=== PATIENT | female | born 1970 | race Caucasian/White ===

== ENCOUNTER → 2020-02-27 16:43 | Outpatient (BNVA) | payer SELFPAY | PROVIDERS: Family Provider Family Medicine; PCP Family Medicine; Visit Provider Nurse Practitioner Family | DX: R50.9 Fever, unspecified (principal); R05 Cough; R09.89 Other specified symptoms and signs involving the circulatory and respiratory systems | CPT/HCPCS: 71046; 80053; 85025; 87400; 87635 ==

== ENCOUNTER → 2021-01-01 09:58 | Outpatient (BNVA) | payer OTHER, SELFPAY | PROVIDERS: Family Provider Family Medicine; PCP Family Medicine; Visit Provider Family Medicine | DX: S86.912A Strain of unspecified muscle(s) and tendon(s) at lower leg level, left leg, initial encounter (principal); X58.XXXA Exposure to other specified factors, initial encounter | CPT/HCPCS: 73560 ==

== ENCOUNTER 2021-01-19 15:38 | Outpatient (CLI) | payer OTHER, SELFPAY ==
--- NOTE | 2021-01-19 16:45 | MR_ITS ---
WS: [id number] MRI RIGHT KNEE NONCONTRAST TECHNIQUE: Axial PD, coronal PD fat sat, coronal PD, sagittal PD, and sagittal PD fat-sat images obta ined. CLINICAL INFORMATION: S86.342A - Strainencounter COMPARISON: None. FINDINGS: Distal quadriceps and patella tendons are intact. Small suprapatellar effusion. Hypertrophic patella. ACL and PCL are intact. Small amount of prepatellar and infrapatellar edema consistent with prepatel lar bursitis. Mild distention of the prepatellar bursa. Chronic thinning of the medial and lateral meniscus. No acute appearing meniscal tears. Moderate lalo dromalacia involving the medial and lateral joint compartments. A few small focal chondral defects mo re prominent involving the posterior lateral femoral condyle measuring 4 mm. No subchondral edema. Mo derate chondromalacia patella. Medial and lateral patellar retinaculum appear intact. Normal medial a nd lateral collateral ligaments. Normal tibial plateau. MR/MR knee RT wo con* [id number] IMPRESSION: 1. Findings compatible with prepatellar bursitis with mild distention of the p repatellar bursa. 2. Anterior and posterior cruciate ligaments are intact. 3. Chronic thinning of the medial and lateral meniscus. No acute appearing men iscal tears. 4. Moderate chondromalacia involving the medial and lateral joint compartments with a few small chondral defects. No subchondral edema. 5. Hypertrophic patella with moderate chondromalacia patella. 6. Small suprapatellar effusion. 7. Medial and lateral collateral ligaments are intact.
== END 2021-01-19 15:39 | disposition home or self-care (01) ==
PROVIDERS: PCP Family Medicine; Visit Provider Family Medicine
DX: S86.911A Strain of unspecified muscle(s) and tendon(s) at lower leg level, right leg, initial encounter (principal); X58.XXXA Exposure to other specified factors, initial encounter; M22.41 Chondromalacia patellae, right knee; M25.461 Effusion, right knee
CPT/HCPCS: 73721

== ENCOUNTER → 2021-01-22 09:00 | Outpatient (BNVA) | payer OTHER, SELFPAY | PROVIDERS: PCP Family Medicine; Visit Provider Family Medicine | DX: M94.269 Chondromalacia, unspecified knee (principal); I10 Essential (primary) hypertension; Z09 Encounter for follow-up examination after completed treatment for conditions other than malignant neoplasm | CPT/HCPCS: 80053; 80061; 84439; 84443; 85025 ==

== ENCOUNTER → 2021-03-19 09:29 | Outpatient (BNVA) | payer OTHER, SELFPAY | PROVIDERS: PCP Family Medicine; Visit Provider Nurse Practitioner Family | DX: R07.81 Pleurodynia (principal); R14.0 Abdominal distension (gaseous); R14.3 Flatulence | CPT/HCPCS: 71046 ==

== ENCOUNTER 2021-03-19 12:00 | Emergency (ER) | payer OTHER, SELFPAY ==
[2021-03-19 12:08] VITALS: BP 159/91; PULSE 94; RESP 15; TEMP 36.9; O2SAT 98; BMI 40.6
--- NOTE | 2021-03-19 14:03 | XR_ITS ---
WS: [id number] Portable AP upright chest, 03/19/2021, 1415 hours Clinical Data: chest pain Comparison: PA and lateral chest, 03/19/2021, 0945 hours. Findings: No nodules, masses or effusions are seen. The heart is normal. The pulmonary vascularity is not increased. No pneumonia or pneumothorax is seen. XR/XR chest 1V portable [id number] Impression: Negative chest.
--- NOTE | 2021-03-19 14:03 | ECG_ITS ---
[facility] Test Date: 2021-03-19 Pat Name: Marjan Alvarez Department: Room: Gender: Female [employer] Department Chair: : 1970 Requested By: Osmany Andrade Order Number: [id number] Tarun MD: Jamari Foster M.D. Measurements Intervals [place] Rate: 89 P: 63 MO: 152 QRS: 50 QRSD: 94 T: 46 QT: 356 QTc: 435 Interpretive Statements SINUS RHYTHM No previous ECG available for comparison Electronically Signed On 03-19-2021 18:41:12 CDT by Jamari Foster M.D. [id number]
--- NOTE | 2021-03-19 15:13 | ED_ITS ---
HPI - Chest Pain General: Chief Complaint: Chest Pain Stated Complaint: CP/SENT BY PCP Time Seen by Provider: 03/19/21 15:05 History of Present Illness: HPI narrative: Patient seen at primary care provider earlier for cough. And sinus drainage. He has had allergies. Cough is continued. Was placed on azithromycin prednisone. Patient does have a history of asthma and has nebulizer at home but is not had albuterol vials refilled long time patient said she had some chest pain with deep breath and she is told if she did got worse that she should come to the ER which she chose to do. MD complaint: chest discomfort Onset (ago): hour(s) Timing of current episode: other (With cough) Prior episodes: No Onset: other (Cough) Severity: mild Context: other (Allergies) Associated symptoms: Reports other (Cough and sinus drainage); Deny abdominal pain, dyspnea, fever(s), nausea or vomiting Review of Systems Const: Denies: fever(s), chills or body aches Eyes: Denies: change in vision or blurry vision ENMT: Reports: nasal discharge and nasal congestion; Denies: throat pain Card: Reports: chest pain (With deep inspiration); Denies: dyspnea on exertion Resp: Reports: non-productive cough and wheezing; Denies: dyspnea or productive cough GI: Denies: abdominal pain, nausea or vomiting Musc: Denies: extremity pain Skin/Breast: Denies: rash Neuro: Denies: headache(s) Psych: Denies: anxiety or depression Tylor/Lymph: Denies: easy bruising PFS ED PFSH: Medical History (Updated 03/19/21 @ 16:41 by ISABELL Azevedo) Hypertension Social History Smoking and tobacco status: current every day smoker cigarettes Packs smoked per day: 1 Alcohol intake: current Alcohol intake frequency: holidays/special occasions only Physical Exam Const: COMMON NORMALS: no acute distress, average body habitus and patient oriented x3 HENMT: COMMON NORMALS: normocephalic HEAD & SCALP: normal to inspection and normocephalic FACE & SINUS: normal facial exam Eye: COMMON NORMALS: conjunctivae normal GENERAL EYE: appearance normal, both eyes and all related structures CONJUNCTIVA: Yes conjunctivae normal Neck/C-Spine: COMMON NORMALS: no JVD Chest: COMMONS NORMALS: normal inspection of the chest Resp: COMMON NORMALS: normal respiratory effort AUSCULTATION: wheezes expiratory wheezes, right lower, right upper and posterior Cardio: COMMON NORMALS: no JVD, regular rate and regular rhythm RATE: regular rate RHYTHM: regular rhythm GI: COMMON NORMALS: Normal to inspection, nondistended, normoactive bowel sounds present Extremity: COMMON NORMALS: normal to inspection and full ROM Neuro: COMMON NORMALS: patient oriented x3 Course Vital Signs: Vital signs: Vital Signs Temperature 98.4 F 03/19/21 12:08 Pulse Rate 88 03/19/21 15:51 Respiratory Rate 16 03/19/21 15:48 Blood Pressure 135/87 03/19/21 15:36 Pulse Oximetry 96 03/19/21 15:48 MDM - Chest Pain MDM Narrative: Medical decision making narrative: Labs are negative. Chest x- ray looks fine. Patient improved with albuterol treatment. Patient has history of asthma does not have ampules at home to put in her nebulizer machine. Was having allergy problems earlier is weak. Has not started her medication was prescribed. Lab Data: Labs: Lab Results 03/19/21 03/19/21 03/19/21 Range/Units 15:32 15:32 15:32 WBC 9.7 (4.0-10.0) 10^3/ uL RBC 5.48 H (4.1-5.3) 10^6/u L Hgb 13.8 (11.5-15.3) g/dL Hct 44.2 (37.0-47.0) % MCV 80.7 L (81-99) fL MCH 25.2 L (28.0-34.0) pg MCHC 31.2 (30.0-36.0) g/dL RDW 14.5 (12.1-15.1) % Plt Count 221 (130-400) 10^3/c mm MPV 12.8 H (7.4-10.4) fL Neut % (Auto) 86.7 % Lymph % (Auto) 10.9 % Forrest % (Auto) 1.2 % Eos % (Auto) 0.3 % Baso % (Auto) 0.5 % Neut # (Auto) 8.37 H (1.8-7.7) 10^3/u L Lymph # (Auto) 1.1 (0.8-4.8) 10^3/u L Forrest # (Auto) 0.1 L (0.2-0.9) 10^3/u L Eos # (Auto) 0.0 (0.0-0.8) 10^3/u L Baso # (Auto) 0.1 (0.0-0.1) 10^3/u L Nucleated RBC % (a uto) 0 % Nucleated RBCs # 0.0 /100WBC Sodium 137 (136-145) mmol/L Potassium 4.7 (3.5-5.1) mmol/L Chloride 100 (98-107) mmol/L Carbon Dioxide 24 (22-29) mmol/L Anion Gap 17.7 (5-19) BUN 15 (6-20) mg/dL Creatinine 0.6 (0.5-0.9) mg/dL GFR Calculation 105.8 (90-130) mL/min Glucose 172 H (65-115) mg/dL Calculated Osmolal ity 289 (285-295) mOsm/k g Calcium 9.3 (8.5-10.5) mg/dL Total Bilirubin 0.2 (0.15-1.2) mg/dL AST 19 (0-32) U/L ALT 30 (0-33) U/L Alkaline Phosphata se 100 (35-105) IU/L Troponin T Baselin e 6 (0-10) ng/L Total Protein 7.4 (6.6-8.7) g/dL Albumin 4.8 (3.5-5.2) g/dL Globulin 2.6 (1.3-4.6) g/dL EKG Data^: EKG 1: EKG interpretation date: 03/19/21 EKG interpretation time: 12:17 Computer generated interpretation: Sinus rhythm ventricular rate 89 bpm MI interval 152 ms QRS duration 94 ms QT is 356 ms Discharge Plan Discharge Patient Disposition: Home Clinical Impression: Bronchitis Condition: Stable Prescriptions: New Ventolin HFA 90 mcg/actuation HFA aerosol inhaler 2 inh inhalation Q6H PRN (Reason: shortness of breath or wheezing) Qty: 6.7 RF: 0 albuterol sulfate 0.63 mg/3 mL solution for nebulization 0.63 mg inhalation TID PRN (Reason: shortness of breath or wheezing) Qty: 75 RF: 0 No Action omega-3 fatty acids [Fish Oil Concentrate] 1,000 mg capsule 1,000 mg PO DAILY@0700 RF: 0 azithromycin 250 mg tablet See Rx Instructions PO .COMPLEX Qty: 6 RF: 0 cholecalciferol (vitamin D3) 1,000 unit capsule 1,000 unit PO DAILY@0700 RF: 0 ascorbic acid (vitamin C) 500 mg capsule 500 mg PO DAILY@0700 RF: 0 ferrous sulfate [FeroSul] 325 mg (65 mg iron) tablet 325 mg PO DAILY@0700 RF: 0 magnesium 200 mg tablet 200 mg PO DAILY@0700 RF: 0 ibuprofen 200 mg capsule 200 mg PO Q6H PRN (Reason: Pain) RF: 0 Centrum Complete 18-400 mg-mcg tablet 1 tab PO DAILY@0700 RF: 0 naproxen [Naprosyn] 500 mg tablet 500 mg PO BID 14 Days Qty: 28 RF: 0 prednisone 20 mg tablet 40 mg PO DAILY@0700 RF: 0 amlodipine 10 mg tablet 10 mg PO DAILY@0700 RF: 0 lisinopril 10 mg tablet 10 mg PO DAILY@0700 RF: 0 Discharge Orders: Discharge ED (Routine); Ordered 03/19/21 Ordered By: Tao Smith Referrals: Neo Hernandez DO [Primary Care Provider] - Discharge Diet: Usual diet Discharge Activity: Resume usual activity Patient Instructions: Acute Bronchitis (ED) Activity Restrictions/Additional Instructions: Follow-up with medical provider as directed. Take medications as prescribed. Return to the ER or your medical provider if condition worsens. Please read and understand discharge instructions. If any questions ask please. Coding Level of Care Code ED Sql Server Developer for Nick Fwd Exam Comprehensive
[2021-03-19 15:36] VITALS: BP 135/87; PULSE 87; RESP 15; O2SAT 96
[2021-03-19 15:48] VITALS: PULSE 87; RESP 16; O2SAT 96
[2021-03-19 15:51] VITALS: PULSE 88
[2021-03-19 15:54] LABS: Basophils # 0.1 10^3/uL (0.0-0.1); Basophils % 0.5 %; Eosinophils % 0.3 %; Hematocrit 44.2 % (37.0-47.0); Hemoglobin 13.8 g/dL (11.5-15.3); Lymphocytes # 1.1 10^3/uL (0.8-4.8); Lymphocytes % 10.9 %; Mean Corpuscular HGB Conc 31.2 g/dL (30.0-36.0); Mean Corpuscular Hemoglobin 25.2 pg (28.0-34.0); Mean Corpuscular Volume 80.7 fL (81-99); Mean Platelet Volume 12.8 fL (7.4-10.4); Monocytes # 0.1 10^3/uL (0.2-0.9); Monocytes % 1.2 %; Neutrophils # 8.37 10^3/uL (1.8-7.7); Neutrophils % 86.7 %; Nucleated Red Blood Cells % 0 %; Platelet Count 221 10^3/cmm (130-400); Red Blood Count 5.48 10^6/uL (4.1-5.3); Red Cell Distribution Width 14.5 % (12.1-15.1); White Blood Count 9.7 10^3/uL (4.0-10.0)
[2021-03-19 16:11] LABS: Alanine Aminotransferase 30 U/L (0-33); Albumin Level 4.8 g/dL (3.5-5.2); Alkaline Phosphatase 100 IU/L (35-105); Anion Gap 17.7 (5-19); Aspartate Amino Transferase 19 U/L (0-32); Blood Urea Nitrogen 15 mg/dL (6-20); Calcium 9.3 mg/dL (8.5-10.5); Carbon Dioxide 24 mmol/L (22-29); Chloride 100 mmol/L (98-107); Globulin 2.6 g/dL (1.3-4.6); Glomerular Filtration Rate 105.8 mL/min (90-130); Glucose 172 mg/dL (65-115); Osmolality Calculated 289 mOsm/kg (285-295); Potassium 4.7 mmol/L (3.5-5.1); Sodium 137 mmol/L (136-145); Total Bilirubin 0.2 mg/dL (0.15-1.2); Total Protein 7.4 g/dL (6.6-8.7)
[2021-03-19 16:12] LABS: Troponin(5th) Baseline 6 ng/L (0-10)
== END 2021-03-19 17:21 | disposition home or self-care (01) ==
PROVIDERS: Family Medicine; Emergency Provider Nurse Practitioner Family; PCP Family Medicine
DX: J40 Bronchitis, not specified as acute or chronic (principal); I10 Essential (primary) hypertension; F17.210 Nicotine dependence, cigarettes, uncomplicated
CPT/HCPCS: 71045; 80053; 84484; 85025; 93005; 94640; 99283; J7611

== ENCOUNTER 2021-04-09 13:21 | Outpatient (CLI) | payer OTHER, SELFPAY ==
--- NOTE | 2021-04-09 13:30 | MM_ITS ---
WS: [id number] BILATERAL SCREENING DIGITAL MAMMOGRAM WITH CAD HISTORY: Z12.31 - Encounter for screening mammogram for malignant ... COMPARISON: None available. Bilateral CC and MLO views submitted. Computer aided detection analyzed. Breast composition: There are scattered areas of fibroglandular density. No suspicious masses, microc alcifications or architectural distortion. MM/[place] [id number] IMPRESSION: BI-RADS: 1-Negative FOLLOW UP: 1 Year Follow-up
== END 2021-04-09 13:22 | disposition home or self-care (01) ==
LOC: RADSHAW 13:28
PROVIDERS: PCP Family Medicine; Visit Provider Nurse Practitioner Family
DX: Z12.31 Encounter for screening mammogram for malignant neoplasm of breast (principal)
CPT/HCPCS: 77067

== ENCOUNTER → 2021-04-27 08:53 | Outpatient (BNVA) | payer OTHER, SELFPAY | PROVIDERS: PCP Family Medicine; Visit Provider Internal Medicine | DX: Z01.812 Encounter for preprocedural laboratory examination (principal); Z12.11 Encounter for screening for malignant neoplasm of colon; Z20.822 Contact with and (suspected) exposure to COVID-19 | CPT/HCPCS: 87635 ==

== ENCOUNTER 2021-05-01 07:50 | Day surgery (SDC) | payer OTHER, SELFPAY ==
[2021-04-29 12:34] VITALS: BMI 39.3
[2021-05-01] MEDS: sodium chloride 0.9% 1,000 ML 30 ML IV (08:24)
--- NOTE | 2021-05-01 08:38 | ANES.PREANE2 ---
Pre-Anesthetic Assessment Pre-Anesthetic Assessment: Height/Weight: Height 1.6 m Weight 100.698 kg Preop Diagnosis: screen, ppap Proposed Procedure: Operation Date: 05/01/21 10:00 Proposed Procedures p EGD 16598 R14.0(Not Applicable) - Bertrand Mckinney MD s Colonoscopy G0121 Z12.11(Not Applicable) - Bertrand Mckinney MD Was Beta Kaia taken within 24 hours: N/A Was Clonidine taken within 24 hours: N/A Last intake: Intake Last Liquid Date 05/01/21 Last Liquid Time 08:00 Last Solid Date 04/30/21 Last Solid Time 08:00 Social: Social History: No alcohol and No tobacco Exam: Pre-Anes Outpt Exam: alert, oriented x 3, clear to auscultation bilaterally and regular rate & rhythm Airway: Submandibular: WNL Cervical ROM: WNL MP: 2 Dentition: False Pulmonary: Pulmonary: Asthma CV/HEM: CV/HEM: Anemia and HTN Metabolic: Metabolic: Morbid obesity Anesthetic Plan: ASA status: 3 Anesthesia: MAC Risk of > 500 ml blood loss (7ml/kg in children): No Meds/Allergies Current Medications: Current Medications Generic Name Dose Route Start Last Admin Trade Name Freq PRN Reason Stop Dose Admin Sodium Chloride 1,000 mls @ 30 ml s/hr 05/01/21 08:15 05/01/21 08:24 Sodium Chloride 0.9% IV 30 mls/hr .Q24H CONNIE Administration PFSH Anesthesia PFSH: Medical History (Updated 04/17/21 @ 15:14 by Inga Higuera NP) Hypertension Social History Alcohol intake: current Alcohol intake frequency: holidays/special occasions only Data Anesthesia Cardiac Studies: No Data to Display
--- NOTE | 2021-05-01 09:43 | P.HP_ITS ---
Same Day Surgery H&P Indication for Procedure/HPI DATE OF PROCEDURE: May 01, 2021 CHIEF COMPLAINT/INDICATIONFOR SURGICAL PROCEDURE: Screening colonoscopy and postprandial abdominal pain. PREOP DIAGNOSIS: screen, ppap PLANNED PROCEDRUE: Operation Date: 05/01/21 10:00 Proposed Procedures p EGD 49185 R14.0(Not Applicable) - Bertrand Mckinney MD s Colonoscopy G0121 Z12.11(Not Applicable) - Bertrand Mckinney MD Medications/Allergies* Home Medications Medication Instructions Recorded Confirmed Type ascorbic acid (vitamin C) 500 mg 500 mg PO DAILY@0700 cap 10/24/19 05/01/21 History capsule cholecalciferol (vitamin D3) 25 1,000 unit PO DAILY@0700 cap 10/24/19 05/01/21 History mcg (1,000 unit) capsule ferrous sulfate 325 mg (65 mg 325 mg PO DAILY@0700 tab 10/24/19 05/01/21 History iron) tablet ibuprofen 200 mg capsule 200 mg PO Q6H PRN 10/24/19 05/01/21 History magnesium 200 mg tablet 200 mg PO DAILY@0700 tab 10/24/19 05/01/21 History multivitamin-ferrous 1 tab PO DAILY@0700 10/24/19 05/01/21 History fumarate-folic acid 18 mg-400 mcg tablet omega-3 fatty acids 1,000 mg 1,000 mg PO DAILY@0700 cap 10/24/19 05/01/21 History capsule amlodipine 10 mg PO DAILY@0700 03/19/21 05/01/21 History Allergies/Adverse Reactions Allergy/AdvReac Type Severity Reaction Status Date / Time cyclobenzaprine Allergy Intermediate hives Verified 05/01/21 08:16 [From Flexeril] ofloxacin [From Floxin] Allergy Intermediate hives Verified 05/01/21 08:16 Penicillins Allergy Intermediate hives Verified 05/01/21 08:16 Current Medications: Generic Name Dose Route Start Last Admin Trade Name Freq PRN Reason Stop Dose Admin Sodium Chloride 1,000 mls @ 30 mls/hr 05/01/21 08:15 05/01/21 08:24 Sodium Chloride 0.9% IV 30 mls/hr .Q24H CONNIE Administration Pertinent History/Comorbid Conditions* Medical History (Updated 04/17/21 @ 15:14 by Inga Higuera NP) Hypertension Social History Alcohol intake: current Alcohol intake frequency: holidays/special occasions only Pertinent Exam Findings alert, oriented x 3, clear to auscultation bilaterally, regular rate & rhythm, operative site marked and procedure specific exam findings Recommendations Surgery/Procedure today Coding Level of Care Code Acute Service Operations Manager for Nick Montesinos
[2021-05-01 10:52] VITALS: BP 144/84; PULSE 91; RESP 16; TEMP 36.6; O2SAT 95
--- NOTE | 2021-05-01 11:03 | ANE.PACU2 ---
Inpatient post-anesthesia follow up: Airway intact: Yes Vital signs: Temperature 98 F Pulse Rate 91 Respiratory Rate 16 Blood Pressure 144/84 Pulse Oximetry 95 Oxygen Delivery Me thod Oxygen Flow Rate Fraction of Inspir ed Oxygen Hydration adequate: Yes Nausea and vomiting: No Mental status: Baseline
[2021-05-01 11:09] VITALS: BP 127/85; PULSE 90; RESP 18; TEMP 36.1; O2SAT 96
== END 2021-05-01 11:24 | disposition home or self-care (01) ==
PROVIDERS: PCP Family Medicine; Visit Provider Internal Medicine
PROC: 0DJ08ZZ Inspection of Upper Intestinal Tract, Via Natural or Artificial Opening Endoscopic (ICD-10-PCS; CPT 43235; principal; 2021-05-01 10:00)
PROC: 0DJD8ZZ Inspection of Lower Intestinal Tract, Via Natural or Artificial Opening Endoscopic (ICD-10-PCS; CPT 45378; 2021-05-01 10:00)
DX: Z12.11 Encounter for screening for malignant neoplasm of colon (principal); R14.0 Abdominal distension (gaseous); I10 Essential (primary) hypertension; E66.01 Morbid (severe) obesity due to excess calories; Z68.39 Body mass index [BMI] 39.0-39.9, adult
CPT/HCPCS: 43235; 45378; 96360; 96361; J2704; J3490; J7030

== ENCOUNTER 2021-05-19 08:50 | Outpatient (CLI) | payer OTHER, SELFPAY ==
--- NOTE | 2021-05-19 09:30 | US_ITS ---
WS: [id number] RIGHT UPPER QUADRANT ULTRASOUND HISTORY: Epigastric pain. COMPARISON: None available. Liver: 19.0 cm in length. Liver is enlarged. Surface of the liver is very slightly nodular. No mass o r intrahepatic dilatation. Gallbladder: Normally distended gallbladder with no stones or wall thickening. CBD: 0.5 cm Pancreas: Head and body are negative. Tail is obscured by bowel gas. Right kidney: 11.5 cm in length. Normal size and echogenicity. No hydronephrosis or mass. Aorta and IVC: Unremarkable abdominal aorta and IVC. No ascites. US/US gall bladder [id number] IMPRESSION: 1. Negative gallbladder. 2. Mild hepatomegaly with changes suspicious for early cirrhosis.
== END 2021-05-19 08:51 | disposition home or self-care (01) ==
PROVIDERS: PCP Family Medicine; Visit Provider Internal Medicine
DX: R10.11 Right upper quadrant pain (principal); R14.0 Abdominal distension (gaseous); R10.13 Epigastric pain; R16.0 Hepatomegaly, not elsewhere classified
CPT/HCPCS: 76705

== ENCOUNTER → 2021-06-09 09:42 | Outpatient (BNVA) | payer OTHER, SELFPAY | PROVIDERS: PCP Family Medicine; Visit Provider Nurse Practitioner Family | DX: Z20.822 Contact with and (suspected) exposure to COVID-19 (principal); R50.9 Fever, unspecified | CPT/HCPCS: 87635 ==

== ENCOUNTER 2021-06-12 06:57 | Outpatient (CLI) | payer OTHER, SELFPAY ==
[2021-06-12 07:35] VITALS: BP 132/85; PULSE 76; RESP 22; TEMP 36.6; O2SAT 96
[2021-06-12 07:55] VITALS: BP 124/80; PULSE 70; RESP 22; TEMP 36.7; O2SAT 96
[2021-06-12 08:50] VITALS: BP 131/83; PULSE 67; RESP 22; TEMP 36.7; O2SAT 98
== END 2021-06-12 08:54 | disposition home or self-care (01) ==
LOC: OPS 07:01
PROVIDERS: PCP Family Medicine; Visit Provider Nurse Practitioner Family
DX: U07.1 COVID-19 (principal)
CPT/HCPCS: 96365

== ENCOUNTER → 2021-10-21 10:38 | Outpatient (BNVA) | payer OTHER, SELFPAY | PROVIDERS: PCP Family Medicine; Visit Provider Nurse Practitioner Family | DX: J02.9 Acute pharyngitis, unspecified (principal) | CPT/HCPCS: 87071; 87880 ==

== ENCOUNTER 2022-06-09 10:01 | Emergency (ER) | payer OTHER, SELFPAY ==
[2022-06-09 10:06] VITALS: BP 147/74; PULSE 88; RESP 17; TEMP 36.5; O2SAT 94; BMI 39.6
--- NOTE | 2022-06-09 10:08 | XRR_ITS ---
PROCEDURE INFORMATION: Exam: XR Chest Exam date and time: 06/09/2022 10:14 AM Age: 51 years old Clinical indication: Pain; Shortness of breath; Angina pectoris; Additional info: Cp TECHNIQUE: Imaging protocol: Radiologic exam of the chest. Views: 1 view. COMPARISON: CR XR chest 1V portable [id number] 03/19/2021 2:14 PM FINDINGS: Lungs: Unremarkable. No consolidation. Pleural spaces: Unremarkable. No pleural effusion. No pneumothorax. Heart/Mediastinum: Unremarkable. No cardiomegaly. Bones/joints: Unremarkable. XR/XR chest 1V portable [id number] IMPRESSION: No acute findings.
--- NOTE | 2022-06-09 10:22 | W.ED.CHESTPA ---
Documented by User: RACHEL Hidalgo 06/10/22 08:15 HPI - Chest Pain General: Chief Complaint: Chest Pain Stated Complaint: chest pain Time Seen by Provider: 06/09/22 10:09 History of Present Illness: Patient is a 51-year-old female comes to the ED via EMS with chest pain. Past medical history of hypertension and GERD. Patient takes omeprazole daily for GERD. Chest pain has been going on now for the past 5 days and has been constant. Chest pain started at rest. She describes it as a aching pain in the middle of her chest that radiated up to her neck and her back. Pain was more severe and a 10 out of 10 yesterday. Denies any worsening or improving factors. This morning she took 324 mg aspirin. EMS gave patient 2 nitro and her chest pain improved. Upon arrival here in the ED her chest pain has improved and she currently rates her chest pain a 1 out of 10. Patient also admits to being a daily tobacco smoker. Associated symptoms: Deny abdominal pain, dyspnea, fever(s), nausea, palpitations or vomiting Review of Systems Const: Denies: fever(s), chills or fatigue Eyes: Denies: change in vision or eye discomfort ENMT: Denies: throat pain, odynophagia, nasal discharge or nasal congestion Card: Reports: chest pain; Denies: palpitations, edema, swelling of feet/ankles, dyspnea on exertion or orthopnea Resp: Denies: dyspnea, productive cough or non-productive cough GI: Denies: abdominal pain, nausea, vomiting, diarrhea, constipation or hematochezia : Denies: flank pain, dysuria or hematuria Musc: Denies: neck pain, back pain or extremity swelling Skin/Breast: Denies: rash or new lesions Neuro: Denies: headache(s), numbness in extremities or weakness in extremities PFS ED PFSH: Medical History Hypertension Surgical History History of abdominal hysterectomy History of tubal ligation Social History Alcohol intake: current Alcohol intake frequency: holidays/special occasions only Physical Exam Const: COMMON NORMALS: patient oriented x3 and alert GENERAL APPEARANCE: cooperative and comfortable HENMT: COMMON NORMALS: normocephalic HEAD & SCALP: normocephalic MOUTH: Normal oral and palatal mucosa present THROAT: posterior oropharynx normal and uvula midline Neck/C-Spine: COMMON NORMALS: supple GENERAL: Yes normal visual inspection Resp: COMMON NORMALS: normal respiratory effort, No retractions, No use of accessory muscles and clear to auscultation bilaterally AUSCULTATION: clear to auscultation bilaterally Cardio: COMMON NORMALS: regular rate, regular rhythm, S1 normal heart sound present, S2 normal heart sound present, No gallops present (Cardio), No clicks present (Cardio), No murmurs present (Cardio) and Peripheral pulses 2+ throughout RATE: regular rate RHYTHM: regular rhythm HEART SOUNDS: S1 normal heart sound present and S2 normal heart sound present PERIPHERAL PULSES: Peripheral pulses 2+ throughout GI: COMMON NORMALS: Normal to inspection, nondistended, normoactive bowel sounds present, Soft to palpation, non-tender and no masses PALPATION: Yes Soft to palpation : COMMON NORMALS: Yes no CVA tenderness BLADDER/KIDNEY EXAM: Yes no CVA tenderness Back/Pelvis: COMMON NORMALS: no CVA tenderness Extremity: COMMON NORMALS: normal to inspection Neuro: COMMON NORMALS: patient oriented x3 SENSORIUM/ORIENTATION: Yes alert GAIT: Yes Normal gait present Skin: GENERAL SKIN EXAM: dry skin Course Vital Signs: Vital signs: Vital Signs Temperature 97.7 F 06/09/22 14:10 Pulse Rate 90 06/09/22 14:10 Respiratory Rate 18 06/09/22 14:10 Blood Pressure 122/70 06/09/22 14:10 Pulse Oximetry 98 06/09/22 14:10 Oxygen Delivery Ak thod 06/09/22 12:15 [facility] - Chest Pain Medical Decision Making Patient is a 51-year-old female comes to the ED via EMS with chest pain. Past medical history of hypertension and GERD. Patient takes omeprazole daily for GERD. Chest pain has been going on now for the past 5 days and has been constant. Chest pain started at rest. She describes it as a aching pain in the middle of her chest that radiated up to her neck and her back. Vitals are stable. Patient appears nontoxic in no acute distress or pain. Exam is benign. CBC and CMP were unremarkable. Baseline troponin 9 and 2-hour troponin was 11 with a delta of +2. EKG showed no ST segment elevation or depression seen or any other acute findings. Chest x-ray showed no acute findings. Patient's heart score is 2 which puts her in the low risk category. She was given 2 doses of nitro via EMS before coming to the ED and states that it helped eliminate her chest pain before coming to the ED today. Referral to case management to have an outpatient sestamibi cardiac stress test set up. Patient was stable for discharge home and told to follow-up with her PCP within the next week for reevaluation. She was told that case reviewer will contact her in the next several days to set up the outpatient cardiac stress test. Strict return to ED precautions given. Patient is to agree with plan. Lab Data I reviewed the patient's lab results. : 06/09/22 10:46 06/09/22 10:46 Radiology Impressions Chest X-Ray 06/09/22 10:08 IMPRESSION: No acute findings. Laboratory Results WBC 10.1 10^3/uL (4.0-10.0) H 06/09/22 10:46 RBC 5.25 10^6/uL (4.1-5.3) 06/09/22 10:46 Hgb 13.2 g/dL (11.5-15.3) 06/09/22 10:46 Hct 42.1 % (37.0-47.0) 06/09/22 10:46 MCV 80.2 fl (81-99) L 06/09/22 10:46 MCH 25.1 pg (28.0-34.0) L 06/09/22 10:46 MCHC 31.4 g/dL (30.0-36.0) 06/09/22 10:46 RDW 14.4 % (12.1-15.1) 06/09/22 10:46 Plt Count 250 10^3/cmm (130-400) 06/09/22 10:46 MPV 12.5 fL (7.4-10.4) H 06/09/22 10:46 Neut % (Auto) 61.8 % 06/09/22 10:46 Lymph % (Auto) 27.4 % 06/09/22 10:46 Iron % (Auto) 7.7 % 06/09/22 10:46 Eos % (Auto) 2.1 % 06/09/22 10:46 Baso % (Auto) 0.7 % 06/09/22 10:46 Neut # (Auto) 6.22 10^3/uL (1.8-7.7) 06/09/22 10:46 Lymph # (Auto) 2.8 10^3/uL (0.8-4.8) 06/09/22 10:46 Iron # (Auto) 0.8 10^3/uL (0.2-0.9) 06/09/22 10:46 Eos # (Auto) 0.2 10^3/uL (0.0-0.8) 06/09/22 10:46 Baso # (Auto) 0.1 10^3/uL (0.0-0.1) 06/09/22 10:46 Nucleated RBC % (auto) 0 % 06/09/22 10:46 Nucleated RBCs # 0.0 /100WBC 06/09/22 10:46 Sodium 136 mmol/L (136-145) 06/09/22 10:46 Potassium 4.4 mmol/L (3.5-5.1) 06/09/22 10:46 Chloride 98 mmol/L (98-107) 06/09/22 10:46 Carbon Dioxide 28 mmol/L (22-29) 06/09/22 10:46 Anion Gap 14.4 (5-19) 06/09/22 10:46 BUN 14 mg/dL (6-20) 06/09/22 10:46 Creatinine 0.6 mg/dL (0.5-0.9) 06/09/22 10:46 GFR Calculation 105.4 mL/min (90-130) 06/09/22 10:46 Glucose 98 mg/dL (65-115) 06/09/22 10:46 Calculated Osmolality 282 mOsm/kg (285-295) L 06/09/22 10:46 Calcium 10.0 mg/dL (8.5-10.5) 06/09/22 10:46 Total Bilirubin 0.3 mg/dL (0.15-1.2) 06/09/22 10:46 AST 20 U/L (0-32) 06/09/22 10:46 ALT 29 U/L (0-33) 06/09/22 10:46 Alkaline Phosphatase 95 U/L (35-105) 06/09/22 10:46 Troponin T Baseline 9 ng/L (0-10) 06/09/22 10:46 Troponin T 120 Minute 11.03 ng/L (0-10) H 06/09/22 12:30 Delta Troponin T 2.03 ABS# (0-10) 06/09/22 12:30 NT-Pro-B Natriuret Pep 277 pg/mL (0-125) H 06/09/22 10:46 Total Protein 7.4 g/dL (6.6-8.7) 06/09/22 10:46 Albumin 4.2 g/dL (3.5-5.2) 06/09/22 10:46 Globulin 3.2 g/dL (1.3-4.6) 06/09/22 10:46 EKG Data EKG 1: EKG interpretation date: 06/09/22 Interpretation: Sinus rhythm, no ST segment elevation or depression seen. 87 bpm. EKG 2: EKG interpretation date: 06/09/22 Interpretation: Normal sinus rhythm, 82 bpm, no ST segment ovation or depression seen. No acute change compared initial EKG done today. Discharge Plan Discharge Patient Disposition: Home Clinical Impression: Chest pain Qualifiers: Chest pain type: unspecified Qualified Code(s): R07.9 - Chest pain, unspecified Condition: Stable Prescriptions: No Action cholecalciferol (vitamin D3) 1,000 unit capsule 1,000 unit PO DAILY@0700 ascorbic acid (vitamin C) 500 mg capsule 500 mg PO DAILY@0700 ferrous sulfate [FeroSul] 325 mg (65 mg iron) tablet 325 mg PO DAILY@0700 naproxen [Naprosyn] 500 mg tablet 500 mg PO BID 14 Days Qty: 28 0RF Stiolto Respimat 2.5-2.5 mcg/actuation mist 2 puff inhalation DAILY Qty: 4 6RF amlodipine 10 mg tablet 10 mg PO DAILY@0700 Qty: 90 1RF albuterol sulfate [Ventolin HFA] 90 mcg/actuation HFA aerosol inhaler 2 inh inhalation Q6H PRN (Reason: shortness of breath or wheezing) Qty: 6.7 0RF albuterol sulfate 0.63 mg/3 mL solution for nebulization 0.63 mg inhalation TID PRN (Reason: shortness of breath or wheezing) Qty: 75 0RF omeprazole 20 mg Capsule,Delayed Release(Dr/Ec) 20 mg PO DAILY [place] 3 Fish Oil 684-1,200 mg Capsule,Delayed Release(Dr/Ec) 1 cap PO DAILY Women's 50 Plus Daily Formula 400 mcg-500 mg calcium-20 mcg Tablet 1 tab PO DAILY aspirin 325 mg Capsule 325 mg PO DAILY lisinopril 20 mg tablet 20 mg PO DAILY Discharge Orders: Discharge ED (Routine); Ordered 06/09/22 Ordered By: Ish Brown Referrals: Neo Hernandez DO [Primary Care Provider] - Discharge Diet: Regular Discharge Activity: Increase activity as tolerated Patient Instructions: Chest Pain (ED) Activity Restrictions/Additional Instructions: Follow-up with medical provider as directed. Case management should be contacting you in the next several days set up an appointment for an outpatient cardiac stress test. Continue taking all home medications as previously prescribed. Return to the ER or your medical provider if condition worsens. Please read and understand discharge instructions. Thank you for choosing [facility] for your healthcare needs today. Please realize this is an emergency room and that we are providing you with a medical screening exam and this may not be complete and all inclusive of all the testing and or work up that you may need to determine your ailment or severity of your illness. It is very important that you follow up as instructed or that you return to the Emergency Department should you have concerns or if your condition changes or worsens in any way. Coding Level of Care Code ED Hvac Journeyman for Chg Fwd Exam Comprehensive Documented by User: Osmany Olivera DO 06/10/22 10:22 HPI - Chest Pain General: Chief Complaint: Chest Pain Stated Complaint: chest pain Time Seen by Provider: 06/09/22 10:09 [facility] ED PFSH: Medical History Hypertension Surgical History History of abdominal hysterectomy History of tubal ligation Social History Alcohol intake: current Alcohol intake frequency: holidays/special occasions only Course Vital Signs: Vital signs: Vital Signs Temperature 97.7 F 06/09/22 14:10 Pulse Rate 90 06/09/22 14:10 Respiratory Rate 18 06/09/22 14:10 Blood Pressure 122/70 06/09/22 14:10 Pulse Oximetry 98 06/09/22 14:10 Oxygen Delivery Me thod 06/09/22 12:15 MDM - Chest Pain Medical Decision Making Patient is a 51-year-old female comes to the ED via EMS with chest pain. Past medical history of hypertension and GERD. Patient takes omeprazole daily for GERD. Chest pain has been going on now for the past 5 days and has been constant. Chest pain started at rest. She describes it as a aching pain in the middle of her chest that radiated up to her neck and her back. Vitals are stable. Patient appears nontoxic in no acute distress or pain. Exam is benign. CBC and CMP were unremarkable. Baseline troponin 9 and 2-hour troponin was 11 with a delta of +2. EKG showed no ST segment elevation or depression seen or any other acute findings. Chest x-ray showed no acute findings. Patient's heart score is 2 which puts her in the low risk category. She was given 2 doses of nitro via EMS before coming to the ED and states that it helped eliminate her chest pain before coming to the ED today. Referral to case management to have an outpatient sestamibi cardiac stress test set up. Patient was stable for discharge home and told to follow-up with her PCP within the next week for reevaluation. She was told that case reviewer will contact her in the next several days to set up the outpatient cardiac stress test. Strict return to ED precautions given. Patient is to agree with plan. Chart reviewed and patient discussed with midlevel. Agree with assessment and plan. Lab Data : 06/09/22 10:46 06/09/22 10:46 Radiology Impressions Chest X-Ray 06/09/22 10:08 IMPRESSION: No acute findings. Laboratory Results WBC 10.1 10^3/uL (4.0-10.0) H 06/09/22 10:46 RBC 5.25 10^6/uL (4.1-5.3) 06/09/22 10:46 Hgb 13.2 g/dL (11.5-15.3) 06/09/22 10:46 Hct 42.1 % (37.0-47.0) 06/09/22 10:46 MCV 80.2 fl (81-99) L 06/09/22 10:46 MCH 25.1 pg (28.0-34.0) L 06/09/22 10:46 MCHC 31.4 g/dL (30.0-36.0) 06/09/22 10:46 RDW 14.4 % (12.1-15.1) 06/09/22 10:46 Plt Count 250 10^3/cmm (130-400) 06/09/22 10:46 MPV 12.5 fL (7.4-10.4) H 06/09/22 10:46 Neut % (Auto) 61.8 % 06/09/22 10:46 Lymph % (Auto) 27.4 % 06/09/22 10:46 Iron % (Auto) 7.7 % 06/09/22 10:46 Eos % (Auto) 2.1 % 06/09/22 10:46 Baso % (Auto) 0.7 % 06/09/22 10:46 Neut # (Auto) 6.22 10^3/uL (1.8-7.7) 06/09/22 10:46 Lymph # (Auto) 2.8 10^3/uL (0.8-4.8) 06/09/22 10:46 Iron # (Auto) 0.8 10^3/uL (0.2-0.9) 06/09/22 10:46 Eos # (Auto) 0.2 10^3/uL (0.0-0.8) 06/09/22 10:46 Baso # (Auto) 0.1 10^3/uL (0.0-0.1) 06/09/22 10:46 Nucleated RBC % (auto) 0 % 06/09/22 10:46 Nucleated RBCs # 0.0 /100WBC 06/09/22 10:46 Sodium 136 mmol/L (136-145) 06/09/22 10:46 Potassium 4.4 mmol/L (3.5-5.1) 06/09/22 10:46 Chloride 98 mmol/L (98-107) 06/09/22 10:46 Carbon Dioxide 28 mmol/L (22-29) 06/09/22 10:46 Anion Gap 14.4 (5-19) 06/09/22 10:46 BUN 14 mg/dL (6-20) 06/09/22 10:46 Creatinine 0.6 mg/dL (0.5-0.9) 06/09/22 10:46 GFR Calculation 105.4 mL/min (90-130) 06/09/22 10:46 Glucose 98 mg/dL (65-115) 06/09/22 10:46 Calculated Osmolality 282 mOsm/kg (285-295) L 06/09/22 10:46 Calcium 10.0 mg/dL (8.5-10.5) 06/09/22 10:46 Total Bilirubin 0.3 mg/dL (0.15-1.2) 06/09/22 10:46 AST 20 U/L (0-32) 06/09/22 10:46 ALT 29 U/L (0-33) 06/09/22 10:46 Alkaline Phosphatase 95 U/L (35-105) 06/09/22 10:46 Troponin T Baseline 9 ng/L (0-10) 06/09/22 10:46 Troponin T 120 Minute 11.03 ng/L (0-10) H 06/09/22 12:30 Delta Troponin T 2.03 ABS# (0-10) 06/09/22 12:30 NT-Pro-B Natriuret Pep 277 pg/mL (0-125) H 06/09/22 10:46 Total Protein 7.4 g/dL (6.6-8.7) 06/09/22 10:46 Albumin 4.2 g/dL (3.5-5.2) 06/09/22 10:46 Globulin 3.2 g/dL (1.3-4.6) 06/09/22 10:46 Discharge Plan Discharge Patient Disposition: Home Clinical Impression: Chest pain Qualifiers: Chest pain type: unspecified Qualified Code(s): R07.9 - Chest pain, unspecified Condition: Stable Prescriptions: No Action cholecalciferol (vitamin D3) 1,000 unit capsule 1,000 unit PO DAILY@0700 ascorbic acid (vitamin C) 500 mg capsule 500 mg PO DAILY@0700 ferrous sulfate [FeroSul] 325 mg (65 mg iron) tablet 325 mg PO DAILY@0700 naproxen [Naprosyn] 500 mg tablet 500 mg PO BID 14 Days Qty: 28 0RF Stiolto Respimat 2.5-2.5 mcg/actuation mist 2 puff inhalation DAILY Qty: 4 6RF amlodipine 10 mg tablet 10 mg PO DAILY@0700 Qty: 90 1RF albuterol sulfate [Ventolin HFA] 90 mcg/actuation HFA aerosol inhaler 2 inh inhalation Q6H PRN (Reason: shortness of breath or wheezing) Qty: 6.7 0RF albuterol sulfate 0.63 mg/3 mL solution for nebulization 0.63 mg inhalation TID PRN (Reason: shortness of breath or wheezing) Qty: 75 0RF omeprazole 20 mg Capsule,Delayed Release(Dr/Ec) 20 mg PO DAILY [place] 3 Fish Oil 684-1,200 mg Capsule,Delayed Release(Dr/Ec) 1 cap PO DAILY Women's 50 Plus Daily Formula 400 mcg-500 mg calcium-20 mcg Tablet 1 tab PO DAILY aspirin 325 mg Capsule 325 mg PO DAILY lisinopril 20 mg tablet 20 mg PO DAILY Discharge Orders: Discharge ED (Routine); Ordered 06/09/22 Ordered By: Ish Brown Referrals: Neo Hernandez DO [Primary Care Provider] - Discharge Diet: Regular Discharge Activity: Increase activity as tolerated Patient Instructions: Chest Pain (ED) Activity Restrictions/Additional Instructions: Follow-up with medical provider as directed. Case management should be contacting you in the next several days set up an appointment for an outpatient cardiac stress test. Continue taking all home medications as previously prescribed. Return to the ER or your medical provider if condition worsens. Please read and understand discharge instructions. Thank you for choosing [facility] for your healthcare needs today. Please realize this is an emergency room and that we are providing you with a medical screening exam and this may not be complete and all inclusive of all the testing and or work up that you may need to determine your ailment or severity of your illness. It is very important that you follow up as instructed or that you return to the Emergency Department should you have concerns or if your condition changes or worsens in any way. Coding Level of Care Code ED Hvac Journeyman for Chg Fwd Exam Comprehensive
--- NOTE | 2022-06-09 10:23 | ECG_ITS ---
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 Measurements Intervals [place] Rate: 87 P: 65 IA: 158 QRS: 60 QRSD: 94 T: 55 QT: 371 QTc: 447 Interpretive Statements SINUS RHYTHM Compared to ECG 03/19/2021 12:16:30 No significant changes Electronically Signed On 06-09-2022 16:29:12 CDT by Santiago Howard M.D. [email or web address]/[email or web address]/[id number]
--- NOTE | 2022-06-09 10:42 | PC.NURSE ---
pt reports she went to her dr due to chest pain radiating to back of her neck. pt reports her physician sent her here. reports pain is midsternal and described as someone kneeding me like I was a dough and lots of pressure, woke up with pain. pain has been intermittent for 5 days Reports dyspnea. denies nausea, reports lightheaded yesterday. reports she has taken ASA 325mg daily for past 3 days. reports EMS gave her 2 nitros that relieved her pain. reports pain is currently 10/26. hx HTN. lungs clear bilat. skin pink/warm/dry. speech clear. speaking in complete sentences without difficulty.
[2022-06-09 11:13] LABS: Basophils # 0.1 10^3/uL (0.0-0.1); Basophils % 0.7 %; Eosinophils # 0.2 10^3/uL (0.0-0.8); Eosinophils % 2.1 %; Hematocrit 42.1 % (37.0-47.0); Hemoglobin 13.2 g/dL (11.5-15.3); Lymphocytes # 2.8 10^3/uL (0.8-4.8); Lymphocytes % 27.4 %; Mean Corpuscular HGB Conc 31.4 g/dL (30.0-36.0); Mean Corpuscular Hemoglobin 25.1 pg (28.0-34.0); Mean Corpuscular Volume 80.2 fl (81-99); Mean Platelet Volume 12.5 fL (7.4-10.4); Monocytes # 0.8 10^3/uL (0.2-0.9); Monocytes % 7.7 %; Neutrophils # 6.22 10^3/uL (1.8-7.7); Neutrophils % 61.8 %; Nucleated Red Blood Cells % 0 %; Platelet Count 250 10^3/cmm (130-400); Red Blood Count 5.25 10^6/uL (4.1-5.3); Red Cell Distribution Width 14.4 % (12.1-15.1); White Blood Count 10.1 10^3/uL (4.0-10.0)
[2022-06-09 11:32] LABS: Troponin(5th) Baseline 9 ng/L (0-10)
[2022-06-09 11:38] LABS: Alanine Aminotransferase 29 U/L (0-33); Albumin Level 4.2 g/dL (3.5-5.2); Alkaline Phosphatase 95 U/L (35-105); Anion Gap 14.4 (5-19); Aspartate Amino Transferase 20 U/L (0-32); Blood Urea Nitrogen 14 mg/dL (6-20); Carbon Dioxide 28 mmol/L (22-29); Chloride 98 mmol/L (98-107); Globulin 3.2 g/dL (1.3-4.6); Glomerular Filtration Rate 105.4 mL/min (90-130); Glucose 98 mg/dL (65-115); NT Pro B Type Natriuretic Pept 277 pg/mL (0-125); Osmolality Calculated 282 mOsm/kg (285-295); Potassium 4.4 mmol/L (3.5-5.1); Sodium 136 mmol/L (136-145); Total Bilirubin 0.3 mg/dL (0.15-1.2); Total Protein 7.4 g/dL (6.6-8.7)
[2022-06-09 12:15] VITALS: BP 128/75; PULSE 89; RESP 17; TEMP 36.5; O2SAT 96
[2022-06-09] MEDS: lidocaine 2% viscous 15 ML, aluminum-mag hydrox-simethicon 30 ML, sucralfate oral liq 1 GM PO (12:45)
--- NOTE | 2022-06-09 12:55 | ECG_ITS ---
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 Measurements Intervals [place] Rate: 82 P: 80 TN: 159 QRS: 79 QRSD: 100 T: 78 QT: 394 QTc: 461 Interpretive Statements SINUS RHYTHM Compared to ECG 06/09/2022 10:23:56 No significant changes Electronically Signed On 06-09-2022 16:35:57 CDT by Santiago Howard M.D. [email or web address] [email or web address]/store/[id number]
[2022-06-09 13:06] LABS: Troponin 5 2HR 11.03 ng/L (0-10)
[2022-06-09 13:07] LABS: Troponin 5 2HR Delta 2.03 ABS# (0-10)
[2022-06-09] MEDS: HYDROcodone-acetaminophen 7.5-325 mg Tablet 1 TAB PO (13:44)
[2022-06-09 14:10] VITALS: BP 122/70; PULSE 90; RESP 18; TEMP 36.5; O2SAT 98
--- NOTE | 2022-06-15 14:17 | DCPLANNER ---
Addendum entered by Eileen Danielson 10/26/22 13:12: Patient had a follow up appointment scheduled for a stress test - patient did attend appointment Original Note: plan manager had message to schedule an outpatient stress test for patient. plan manager faxed signed order to centralized scheduling, who will call patient with appointment information.
== END 2022-06-09 14:12 | disposition home or self-care (01) ==
PROVIDERS: Emergency Provider Physician Assistant; PCP Family Medicine
DX: R07.9 Chest pain, unspecified (principal); I10 Essential (primary) hypertension; K21.9 Gastro-esophageal reflux disease without esophagitis; Z79.82 Long term (current) use of aspirin
CPT/HCPCS: 71045; 80053; 83880; 84484; 85025; 93005; 99285

== ENCOUNTER 2022-09-16 09:10 | Outpatient (CLI) | payer OTHER, SELFPAY ==
--- NOTE | 2022-09-16 | ECG_ITS ---
[facility] Test Date: 2022-09-16 Pat Name: Marjan Alvarez Department: Room: Gender: Female Radiology Rn: : 1970 Requested By: Ish Brown Order Number: [id number] Mcneil MD: Leigh Lind M.D. Interpretive Statements NAME OF STUDY: EXERCISE SESTAMIBI STRESS TEST INDICATION: Chest Pain PROCEDURE: At the baseline, the patient's blood pressure was 136/82 mm Hg with a heart rate of 85 bpm and oxygen saturation of 94%. The baseline electrocardiogram showed normal sinus rhythm with normal ST-Ts. ??? The patient exercised for 6 minutes and 22 seconds on a [standard [place] protocol]. Patient attained a maximum heart rate of 146 beats per minute( 86 % of the maximum predicted heart rate) with a blood pressure at the peak exercise of 179/83 mm Hg and oxygen saturation of 92%. The EKG at the peak exercise revealed sinus tachycardia with no significant ST-T wave changes. Patient did [not have any chest pain or any significant cardiac arrhythmias with the exercise. The study was terminated due to exertional shortness of breath and maximal effort. ??? During the recovery phase, there were no new changes. ??? Blood pressure at the end of the recovery phase was 141/87 mm Hg with a heart rate of 102 beats per minute and oxtgen saturation of 94%. ??? CONCLUSION: 1. Normal EKG response to treadmill exercise. 2. No exercise-induced chest pain or cardiac arrhythmia. 3. Good exercise tolerance, attained a maximum of 7 METs. Maximum VO2 of 24.5 ml/kg/min. 4. Perfusion prtion of the study will be reported separately. Electronically Signed On 09-18-2022 12:42:22 INDUSTRIAL PAINTER by Leigh Lind M.D. [email or web address]/store/[id number]
[2022-09-16 10:11] VITALS: BMI 40.7
--- NOTE | 2022-09-16 10:16 | NMCV_ITS ---
NM nico perf SPECT r/s* [id number] Marjan Alvarez Age: 51 Gender: F : 1970 Exam Date: 09/16/2022 10:16 Ordering Phys: Ish Brown Technologist: DUGLAS Whitfield Exam Location: [facility] Indications: CHEST PAIN STRESS TEST [facility] IMAGE PROTOCOL Rest/Stress 1 Exercise Day Radiopharmaceutical Dose (mCi) Administration Site Administered by Rest: Tc-99m 10.8 IV DUGLAS Whitfield Sestamibi Stress:Tc-99m 32.7 IV DUGLAS Garcia Sestamibi Rest: 16-Sep-2022 60 Discovery 630 Stress: 16-Sep-2022 15 Discovery 630 Radiopharmaceutical was injected at 85 % maximum heart rate. Supine position only as patient was unable to lay prone. Laying prone caused her to cough and was unable to get images without motion. SPECT RESULTS Technical Quality: Good Raw Data Analysis: Normal Image Corrections: No attenuation or motion correction applied Summed Stress Score: 4 Summed Rest Score: 6 Summed Difference Score: 1 PERFUSION FINDINGS Small sized perfusion abnormality of mild severity of mid to apical inferior, apical septal and apical jones on rest images with improved tracer uptake in septal and apical jones on stress images. This suggestive of attenuation artifact. FUNCTIONAL RESULTS (calculated via Gated SPECT) Stress Image LV EF (%): 48 Stress EDV (mL):126 TID: 1.02 Stress ESV (mL):66 FUNCTIONAL FINDINGS: The left ventricle is normal in size. Transient Ischemia Dilatation of 1. The left ventricular ejection fraction is mildly reduced reduced with a value of 48%. There is mild global hypokinesis. IMPRESSIONS 1. Small sized predominantly fixed perfusion abnormality of mid to apical inferior jones may represent attenuation artifact or old myocardial infarction. 2. Small sized paradoxical perfusion abnormality of apical septal and apical jones represents attenuation artifact. 3. The left ventricular ejection fraction is mildly reduced reduced with a value of 48%. 4. There is mild global hypokinesis. 5. EKG portion of the study will be reported separately. 6. No coronary ischemia based on the study. Leigh Lind MD (Electronically Signed) Final Date: 21 September 2022 13:16 S
[2022-09-16 12:21] VITALS: BP 141/87; PULSE 90
== END 2022-09-16 09:11 | disposition home or self-care (01) ==
LOC: CDL 09:11
PROVIDERS: PCP Family Medicine; Visit Provider Physician Assistant
DX: R07.9 Chest pain, unspecified (principal)
CPT/HCPCS: 36415; 78452; 93017; A9500

== ENCOUNTER → 2023-02-17 15:09 | Outpatient (BNVA) | payer OTHER, SELFPAY | PROVIDERS: PCP Family Medicine; Visit Provider Nurse Practitioner Family | DX: I10 Essential (primary) hypertension (principal); M79.641 Pain in right hand; M79.642 Pain in left hand; Z68.41 Body mass index [BMI] 40.0-44.9, adult | CPT/HCPCS: 80053; 80061; 84443 ==

== ENCOUNTER → 2023-03-03 08:46 | Outpatient (BNVA) | payer OTHER, SELFPAY | PROVIDERS: PCP Family Medicine; Visit Provider Nurse Practitioner Family | DX: I10 Essential (primary) hypertension (principal) | CPT/HCPCS: 80053; 80061; 84443 ==

== ENCOUNTER → 2023-08-23 14:24 | Outpatient (BNVA) | payer OTHER, SELFPAY | PROVIDERS: PCP Family Medicine; Visit Provider Nurse Practitioner Family | DX: R05.9 Cough, unspecified (principal) | CPT/HCPCS: 87400; 87426 ==

== ENCOUNTER → 2024-02-02 14:43 | Outpatient (BNVA) | payer OTHER, SELFPAY | PROVIDERS: PCP Family Medicine; Visit Provider Nurse Practitioner Family | DX: I10 Essential (primary) hypertension (principal); R63.5 Abnormal weight gain; R53.83 Other fatigue; Z12.31 Encounter for screening mammogram for malignant neoplasm of breast; R30.9 Painful micturition, unspecified; Z79.899 Other long term (current) drug therapy | CPT/HCPCS: 80053; 80061; 81000; 84443; 85025 ==

== ENCOUNTER 2024-02-29 09:35 | Outpatient (CLI) | payer OTHER, SELFPAY ==
--- NOTE | 2024-02-29 16:00 | MM_ITS ---
WS: [id number] Bilateral screening 3D tomosynthesis digital mammogram, 02/29/2024 Clinical Data: Z12.31 - Encounter for screening mammogram for malignant ... Comparison: 04/09/2021 Findings: The breast parenchymal pattern shows fibroglandular tissue. No spiculated masses or clustered calcifi cations are seen. There are no secondary signs of carcinoma. There are mole markers on both breasts. MM/[place] [id number] Impression: 1. Negative bilateral mammogram unchanged. 2. Recommend annual screening mammograms. BIRADS: 1-Negative FOLLOW UP: 1 Year Follow-up The CAD quotation checker was used.
== END 2024-02-29 09:36 | disposition home or self-care (01) ==
LOC: MOBLMAM 09:40
PROVIDERS: PCP Nurse Practitioner Family; Visit Provider Nurse Practitioner Family
DX: Z12.31 Encounter for screening mammogram for malignant neoplasm of breast (principal)
CPT/HCPCS: 77063; 77067

== ENCOUNTER → 2024-07-02 10:22 | Outpatient (BNVA) | payer OTHER, SELFPAY | PROVIDERS: PCP Nurse Practitioner Family; Visit Provider Internal Medicine Cardiovascular Disease | DX: R07.9 Chest pain, unspecified (principal); I49.8 Other specified cardiac arrhythmias | CPT/HCPCS: 93005 ==

== ENCOUNTER 2024-07-17 11:41 | Outpatient (CLI) | payer OTHER, SELFPAY ==
--- NOTE | 2024-07-17 11:46 | ECG_ITS ---
[facility] Test Date: 2024-07-17 Pat Name: Marjan Alvarez Department: Room: Gender: Female Project Management Manager: : 1970 Requested By: Emma Franco Order Number: [id number] Mcneil MD: Emma Franco M.D. Interpretive Statements PROCEDURE: At the baseline, the patient's blood pressure was 182/86 with a heart rate of 88. The baseline electrocardiogram showed sinus tachycardia with normal ST-Ts.. The patient exercised for 3 minutes on a standard Devante protocol. Patient attained a maximum heart rate of 143 beats per minute(85% of the maximum predicted heart rate) with a blood pressure at the peak exercise of 209/82 mm Hg. The EKG at the peak exercise revealed no significant changes. Patient did not have any chest pain. Occasional PVCs were noted at the peak size During the recovery phase, there were no new changes. Blood pressure at the end of the recovery phase was 177/83 mm Hg with a heart rate of 100 per minute. CONCLUSION: 1. Normal EKG response to treadmill exercise 2. No exercise-induced chest pain . Occasional PVCs were noted at the peak exercise. 3. Impaired exercise tolerance, attained a maximum of 4.6 METs 4. The Mcgee treadmill score was 0 -moderate risk Electronically Signed On 07-19-2024 08:39:13 CDT by Emma Franco M.D. [email or web address]
[2024-07-17 11:48] VITALS: BMI 43.0
[2024-07-17 12:12] VITALS: BP 177/83; PULSE 98
== END 2024-07-17 11:42 | disposition home or self-care (01) ==
PROVIDERS: PCP Nurse Practitioner Family; Visit Provider Internal Medicine Cardiovascular Disease
DX: I10 Essential (primary) hypertension (principal); R07.9 Chest pain, unspecified; R94.39 Abnormal result of other cardiovascular function study
CPT/HCPCS: 93017

== ENCOUNTER 2024-08-03 06:12 | Outpatient (CLI) | payer OTHER, SELFPAY ==
--- NOTE | 2024-08-03 06:15 | USCV_ITS ---
Marjan Alvarez Age: 53 Gender: F : 1970 Exam Date: 08/03/2024 06:39 Ordering Phys: Emma Franco MD ([email or web address]) Technologist: [place] [facility] [place]: chest pain BP: 150 / 81 HR: 82 Rhythm: Sinus Technical Quality: Adequate MEASUREMENTS (Male / Female) Normal Values 2D ECHO LV Diastolic Diameter PLAX 5.0 cm 4.2 - 5.9 / 3.9 - 5.3 cm IVS Diastolic Thickness 1.1 cm 0.6 - 1.0 / 0.6 - 0.9 cm IVS Systolic Thickness 1.4 cm LVPW Diastolic Thickness 1.5 cm 0.6 - 1.0 / 0.6 - 0.9 cm LVPW Systolic Thickness 2.7 cm LVOT Diameter 2.1 cm LV Ejection Fraction 2D Teich 61.1 % LV Ejection Fraction MOD 4C 64.2 % LV Ejection Fraction MOD 2C 52.4 % LV Ejection Fraction 2C AL 54.2 % LA Diameter 3.2 cm RA Systolic Volume 4C AL 20.6 ml RA Systolic Volume 4C MOD 20.2 ml LA Sys Volume AL 62.5 cm cubed LA Sys Volume Index AL 27.0 cm cubed/m squared Aorta at Sinotubular Diameter 1.9 cm IVC Diameter 1.7 cm M-MODE LA Ao Ratio MM 1.4 AV Cusp Separation MM 1.8 cm DOPPLER AV Peak Velocity 133.0 cm/s LVOT Peak Velocity 84.0 cm/s AV Area Cont Eq vti 2.3 cm squared AV Area Cont Eq pk 2.2 cm squared MV Peak Velocity 96.0 cm/s MV Area PHT 4.8 cm squared Mitral E to A Ratio 0.9 TR Peak Velocity 269.0 cm/s TR Peak Gradient 28.9 mmHg TR Mean Velocity 220.0 cm/s TR Mean Gradient 20.5 mmHg TR Velocity Time Integral 82.9 cm PV Peak Velocity 93.0 cm/s RV Ejection Time 0.3 s FINDINGS Left Ventricle Normal left ventricular size and systolic function, EF 64%..no regional wall motion abnormalities. Grade I/IV diastolic dysfunction (abnormal relaxation filling pattern), normal to mildly elevated filling pressures. Right Ventricle The right ventricle is normal in size and function. Right Atrium The right atrium is normal in size. Left Atrium The left atrium is normal in size. Mitral Valve Mild mitral annular calcification. Trace to mild mitral valve regurgitation. Aortic Valve No gross abnormalities noted Tricuspid Valve No gross abnormalities noted Pulmonic Valve No gross abnormalities noted Pericardium Normal pericardium without effusion. Aorta Normal ascending aorta dimension. IVC Normal IVC dimension with >50% respiratory change of the inferior vena cava. CONCLUSIONS Normal left ventricular size and systolic function, EF 64%..no regional wall motion abnormalities. Grade I/IV diastolic dysfunction (abnormal relaxation filling pattern), normal to mildly elevated filling pressures. Mild mitral annular calcification. Trace to mild mitral valve regurgitation. There is no pericardial effusion. There are no intracardiac masses. No similar previous studies are available for comparison Dr Emma Franco MD FACC (Electronically Signed) Final Date: 12 August 2024 20:47 S
== END 2024-08-03 06:13 | disposition home or self-care (01) ==
PROVIDERS: PCP Nurse Practitioner Family; Visit Provider Internal Medicine Cardiovascular Disease
DX: I50.30 Unspecified diastolic (congestive) heart failure (principal); R06.09 Other forms of dyspnea
CPT/HCPCS: 93306

== ENCOUNTER → 2024-08-17 11:30 | Outpatient (BNVA) | payer OTHER, SELFPAY | PROVIDERS: PCP Nurse Practitioner Family; Visit Provider Nurse Practitioner Family | DX: I10 Essential (primary) hypertension (principal); E11.9 Type 2 diabetes mellitus without complications | CPT/HCPCS: 80053; 80061; 82043; 83036 ==

== ENCOUNTER → 2024-12-28 09:15 | Outpatient (BNVA) | payer OTHER, SELFPAY | PROVIDERS: PCP Nurse Practitioner Family; Visit Provider Nurse Practitioner Family | DX: R73.09 Other abnormal glucose (principal); M54.50 Low back pain, unspecified | CPT/HCPCS: 81000; 83036 ==

== ENCOUNTER 2025-03-05 12:59 | Outpatient (CLI) | payer BC, MEDICAID, SELFPAY ==
--- NOTE | 2025-03-05 13:00 | MM_ITS ---
WS: [id number] BILATERAL 3D TOMOSYNTHESIS DIGITAL SCREENING MAMMOGRAPHY WITH CAD CLINICAL INFORMATION: SCREENING HISTORY: Screening mammogram. No current complaints. COMPARISON: 2023 TECHNIQUE: Bilateral CC and MLO views. FINDINGS: Scattered fibroglandular densities bilaterally. No suspicious focal mass, asymmetry, calcifications, or architectural distortion. No evidence of malignancy. MM/MM scr BI tomosynthesis [id number] IMPRESSION: DENSITY: There are scattered areas of fibroglandular density. BI-RADS: 1 - Negative. FOLLOW UP: 1 Year Follow-up Recommend return to annual screening mammography.
== END 2025-03-05 13:00 | disposition home or self-care (01) ==
PROVIDERS: PCP Nurse Practitioner Family; Visit Provider Nurse Practitioner Family
DX: Z12.31 Encounter for screening mammogram for malignant neoplasm of breast (principal); R92.323 Mammographic fibroglandular density, bilateral breasts
CPT/HCPCS: 77063; 77067

== ENCOUNTER → 2025-03-29 09:56 | Outpatient (BNVA) | payer BC, SELFPAY | PROVIDERS: PCP Nurse Practitioner Family; Visit Provider Nurse Practitioner Family | DX: E11.9 Type 2 diabetes mellitus without complications (principal); I10 Essential (primary) hypertension | CPT/HCPCS: 80053; 80061; 83036; 84443 ==

== ENCOUNTER 2025-05-27 15:10 | Outpatient (CLI) | payer BC, SELFPAY ==
--- NOTE | 2025-05-27 15:16 | XRR_ITS ---
PROCEDURE INFORMATION: Exam: XR Lumbosacral Spine Exam date and time: 05/27/2025 3:29 PM Age: 54 years old Clinical indication: Low back pain; Additional info: M54.50 - low back pain, unspecified TECHNIQUE: Imaging protocol: Radiologic exam of the lumbosacral spine. Views: 2 or 3 views. COMPARISON: CR XR thoracic spine 3V* [id number] 05/27/2025 3:29 PM FINDINGS: Bones/joints: Mild lumbar spondylosis, mildly most conspicuous at L5-S1. Soft tissues: Unremarkable. Vasculature: Aortic atherosclerosis. Other findings: Three films. XR/XR lumbar spine 2-3V* [id number] IMPRESSION: No definite acute fracture, subluxation, dislocation.
--- NOTE | 2025-05-27 15:16 | XRR_ITS ---
PROCEDURE INFORMATION: Exam: XR Thoracic Spine Exam date and time: 05/27/2025 3:29 PM Age: 54 years old Clinical indication: Pain in thoracic spine; Additional info: M54.50 - low back pain, unspecified TECHNIQUE: Imaging protocol: Radiologic exam of the thoracic spine. Views: 3 views. COMPARISON: CR XR chest 1V portable [id number] 06/09/2022 10:14 AM FINDINGS: 3 films Bones/joints: Mild thoracic spondylosis. Mild cervical spondylosis. Soft tissues: Unremarkable. XR/XR thoracic spine 3V* [id number] IMPRESSION: No definite acute fracture, subluxation, dislocation.
== END 2025-05-27 15:11 | disposition home or self-care (01) ==
LOC: RAD 15:12
PROVIDERS: PCP Nurse Practitioner Family; Visit Provider Nurse Practitioner Family
DX: M47.814 Spondylosis without myelopathy or radiculopathy, thoracic region (principal); M47.812 Spondylosis without myelopathy or radiculopathy, cervical region
CPT/HCPCS: 72072; 72100

== ENCOUNTER 2025-07-01 07:55 | Outpatient (CLI) | payer BC, SELFPAY ==
--- NOTE | 2025-07-01 08:45 | MR_ITS ---
WS: [id number] MRI LUMBAR SPINE NONCONTRAST TECHNIQUE: Sagittal T1, T2 and STIR imaging. Axial T1 and T2 imaging. CLINICAL INFORMATION: M54.50 - Low back pain, unspecified COMPARISON: None. FINDINGS: Mild lumbar curve. No acute compression. Disc bulging worse at L5-S1 with disc desiccation. L1-L2: Normal. L2-L3: No significant disc bulging. Mild facet arthropathy. L3-L4: Mild annular bulging. Mild facet arthropathy. Spinal canal and foramen are patent. L4-L5: Mild annular bulging. Shallow central protrusion. Slight effacement of the ventral thecal sac. Mild facet arthropathy. Foramen are patent. L5-S1: Disc desiccation with shallow central protrusion. Slight contact of the traversing S1 nerve roots. Mild facet arthropathy. Mild LEFT foraminal narrowing. Spinal canal is patent. Visualized pelvic bony structures: Normal. Paravertebral soft tissues: Normal. MR/MR lumbar spine wo con* [id number] IMPRESSION: 1. Mild lumbar curve. No acute compression. 2. No significant central canal stenosis. 3. Shallow central protrusion L4-5 with slight narrowing of the RIGHT greater than LEFT subarticular recess. 4. Central protrusion L5-S1 with slight contact of the S1 nerve roots bilatera lly. Mild LEFT L5-S1 foraminal narrowing. 5. Mild facet arthropathy L4-L5 and L5-S1.
--- NOTE | 2025-07-01 09:30 | MR_ITS ---
WS: [id number] MRI THORACIC SPINE WITHOUT CONTRAST TECHNIQUE: Sagittal T1, T2 and STIR imaging. Axial T2 imaging. Noncontrast imaging obtained. CLINICAL INFORMATION: M54.6 - Pain in thoracic spine COMPARISON: None. FINDINGS: Mild thoracic curve. No acute compression. No high-grade central canal stenosis. Cord signal is normal. Mild spondylitic changes. No significant disc protrusions or extrusions. Normal caliber thoracic aorta. Normal CSF pulsation artifact in the dorsal spinal canal. Normal paravertebral soft tissues. Mild facet arthropathy lower thoracic spine. MR/MR thoracic spin wo con* [id number] IMPRESSION: 1. No acute thoracic spine findings.
== END 2025-07-01 07:56 | disposition home or self-care (01) ==
PROVIDERS: Absent Provider Orthopaedic Surgery; PCP Nurse Practitioner Family; Visit Provider Nurse Practitioner Family
DX: M54.50 Low back pain, unspecified (principal); G89.29 Other chronic pain; M47.817 Spondylosis without myelopathy or radiculopathy, lumbosacral region; M54.6 Pain in thoracic spine; M47.814 Spondylosis without myelopathy or radiculopathy, thoracic region
CPT/HCPCS: 72146; 72148

== ENCOUNTER → 2025-07-02 08:25 | Outpatient (BNVA) | payer BC, MEDICAID, SELFPAY | PROVIDERS: PCP Nurse Practitioner Family; Visit Provider Orthopaedic Surgery | DX: M47.817 Spondylosis without myelopathy or radiculopathy, lumbosacral region (principal); M54.6 Pain in thoracic spine; G89.29 Other chronic pain; M48.062 Spinal stenosis, lumbar region with neurogenic claudication; Z01.818 Encounter for other preprocedural examination | CPT/HCPCS: 36415; 72072; 72110; 80053; 81001; 83036; 85025 ==

== ENCOUNTER 2025-07-26 08:30 | Day surgery (SDC) | payer BC, MEDICAID, SELFPAY ==
[2025-07-26] VITALS (11 sets, daily range): BP systolic 102–157; BP diastolic 60–93; PULSE 82–105; RESP 12–22; TEMP 36.6–36.9; O2SAT 90–99; BMI 51.0
--- NOTE | 2025-07-26 09:25 | ANES.PREANE2 ---
Pre-Anesthetic Assessment Height/Weight: Height 1.55 m Weight 122.47 kg Temp Pulse Resp BP Pulse Ox O2 Del Method 97.8 F 105 H 18 111/93 97 Room Air 07/26/25 08:47 07/26/25 08:47 07/26/25 08:47 07/26/25 08:47 07/26/25 08:47 07/26/25 08:47 Preop Diagnosis: Lumbar stenosis with neurogenic claudication Operation Date: 07/26/25 09:15 Proposed Procedures p Spine Decompression Lumbar Decompression(Not Applicable) - Kelechi Stokes, DO Familial anesthetic complications: None Was Beta Kaia taken within 24 hours: N/A Was Clonidine taken within 24 hours: N/A Last intake: Intake Last Liquid Date 07/25/25 Last Liquid Time 20:00 Last Solid Date 07/25/25 Last Solid Time 19:00 Social No alcohol and No tobacco Exam alert, oriented x 3, clear to auscultation bilaterally and regular rate & rhythm Airway Mallampati: Class II Dentition: partials CV/HEM Hypertension GI Gastroesophageal Reflux Disease Metabolic Diabetes Mellitus and Morbid Obesity Anesthetic Plan ASA status: 3 Anesthesia: General Risk of > 500 ml blood loss (7ml/kg in children): No Medications/Allergies Home Medications ?Medication ?Instructions ?Recorded ?Confirmed ?Last Taken ?Type zjttbpeo-ves-pyoqu ac 400 1 tab PO DAILY 06/09/22 07/26/25 07/24/25 History mcg-calcium carb 500 mg-vit K1 20 mcg tablet (Women's 50 Plus Daily Formula) lisinopril 40 mg tablet 40 mg PO DAILY #90 tabs 03/12/25 07/26/25 07/24/25 Rx metformin 500 mg tablet 500 mg PO BIDWMEAL 90 days #180 06/11/25 07/26/25 07/24/25 Rx tabs tirzepatide (weight loss) 7.5 7.5 mg (0.5 mL) SUBCUT .weekly #2 06/11/25 07/26/25 07/16/25 Rx mg/0.5 mL subcutaneous pen mL injector (Zepbound) tizanidine 2 mg tablet 2 mg PO Q8H PRN muscle spasticity 06/11/25 07/26/25 07/24/25 Rx #30 tabs omeprazole 20 mg capsule,delayed 20 mg PO DAILY 07/18/25 07/26/25 07/24/25 History release amlodipine 10 mg tablet 10 mg PO DAILY 07/24/25 07/26/25 07/24/25 History ibuprofen 800 mg tablet 800 mg PO TID 07/24/25 07/26/25 07/24/25 History Allergies Allergy/AdvReac Type Severity Reaction Status Date / Time cyclobenzaprine (From Allergy Intermediate hives Verified 07/26/25 08:41 Flexeril) ofloxacin (From Floxin) Allergy Intermediate hives Verified 07/26/25 08:41 Penicillins Allergy Intermediate hives Verified 07/26/25 08:41 Current Medications Generic Name Dose Route Start Last Admin Trade Name Freq PRN Reason Stop Dose Admin Sodium Chloride 1,000 mls @ 30 mls/hr 07/26/25 08:45 07/26/25 09:02 Sodium Chloride 0.9% IV 07/27/25 08:44 30 mls/hr .Q24H CONNIE Administration PFSH Anesthesia Medical History Psychiatric care Hypertension Surgical History History of abdominal hysterectomy History of tubal ligation Social History Smoking and tobacco/nicotine status: former use of tobacco/nicotine Alcohol intake: current Alcohol intake frequency: holidays/special occasions only Data Anesthesia Cardiac Studies: Echocardiogram 08/03/24 Sestamibi Stress Test (Cardiology) 09/16/22
--- NOTE | 2025-07-26 09:31 | W.PM.OPSUD ---
Surgery/Procedure H&P Update DATE OF PROCEDURE: July 26, 2025 DATE H&P PERFORMED: 07/02/25 H&P UPDATE INFORMATION: I have reviewed H&P completed within last 30 days, I have examined patient prior to procedure and No changes to prior documentation PREOP DIAGNOSIS: Lumbar stenosis with neurogenic claudication PLANNED PROCEDURE: Operation Date: 07/26/25 09:15 Proposed Procedures p Spine Decompression Lumbar Decompression(Not Applicable) - Kelechi Stokes DO
[2025-07-26] MEDS: lidocaine-epi 1% PF 1:200,000 30 mL SDV 10 ML INJECTION (10:21)
[2025-07-26] MEDS: fentaNYL 50 mcg/mL INJ 2mL IVP (10:58)
--- NOTE | 2025-07-26 11:05 | XR_ITS ---
WS: [id number] XR lumbar spine 2-3V* [id number] REASON FOR EXAM: OR PICS FINDINGS: Surgical instrument overlying the right L5-S1 and L4-L5 interspaces. XR/XR lumbar spine 2-3V* [id number] IMPRESSION: Intraoperative lumbar level localization as above.
--- NOTE | 2025-07-26 11:06 | P.OP_ITS ---
Operative Report Date of procedure: July 26, 2025 Pre-op diagnosis: Lumbar stenosis with neurogenic claudication Post-op diagnosis: same Procedure done: 1. L4/5 laminectomy partial facetectomy 2. L5/S1 laminectomy partial facetectomy Surgeon: Kelechi Stokes DO Estimated blood loss (mL): 5 Procedure: 1. L4/5 laminectomy partial facetectomy 2. L5/S1 laminectomy partial facetectomy Patient is brought to the operative suite. After undergoing anesthesia they are placed in the prone position. All areas of impingement are well padded. Patient is then prepped and draped in the normal sterile fashion. A skin incision is made over the L4/5 level. This is confirmed under c-arm bianca dance. A series of dilators are passed and the tubular retractor is docked on the L4 lamina. A bovie is used to clear the soft tissue off the lamina and the L 4/5 facet joint. A high speed annabel is then used to perform the laminectomy and take down the medial aspect of the L 4/5 facet joint. A kerrison rongeure was then used to take down the remaining lamina and smooth the edge of the laminectomy up to the point where the ligamentum flavum attaches. Attention was then brought to the medial aspect of the facet joint. The remaining medial aspect of the superior and inferior aspect of the facet joint were taken down with the kerrison from the pedicle of L4 to L 5. The facet joint had significant hypertrophy. Attention was then brought to the Ligamentum Flavum. The ligament was taken reyes n from the lamina of L4 to L5 and out medially to the remaining facet joint. The ligament was thick. The dura was then exposed. The dura was in good repair. The L4 nerve was then traced with a curette out the L4/5 foramen and found to be adequately decompressed. The L5 nerve was traced with a curette around the L5 pedicle. The lateral recess was opened with a kerrison helping to further deco mpress the L5 nerve. Wound is then irrigated copiously with saline and surgiflo is used to stop any bleeding. The tubular retractor is removed A skin incision is made over the 5/S1 level. This is confirmed under c-arm guidance. A series of dilators are passed and the tubular retractor is docked on the L5/S1 lamina. A bovie is used to clear the soft tissue off the lamina and the L 5/S1 facet joint. A high speed annabel is then used to perform the laminectomy and take down the medial aspect of the L 5/S1 facet joint. A kerrison rongeure was then used to take down the remaining lamina and smooth the edge of the laminectomy up to the point where the ligamentum flavum attaches. Attention was then brought to the medial aspect of the facet joint. The remaining medial aspect of the superior and inferior aspect of the facet joint were taken down with the kerrison from the pedicle of L5 to S1. The facet joint had significant hypertrophy. Attention was then brought to the Ligamentum Flavum. The ligament was taken down from the lamina of L5 to S1 and out medially to the remaining facet joint. The ligament was thick. The dura was then exposed. The dura was in good repair. The L5 nerve was then traced with a curette out the L 5/S1 foramen and found to be adequately decompressed. The S1 nerve was traced with a curette around the S1 pedicle. The lateral recess was opened with a kerrison helping to further decompress the S1 nerve. Wound is then irrigated copiously with saline and surgiflo is used to stop any bleeding. The tubular retractor is removed and the wound is closed with vicryl and monocryl suture. Steri strips were applied. A sterile dressing is then placed. Patient was then placed in the supine position and transferred to the PACU in stable condition.
[2025-07-26] MEDS: HYDROcodone-acetaminophen 5-325 mg Tablet 1 TAB PO (11:40)
--- NOTE | 2025-07-26 12:10 | ANE.PACU2 ---
Inpatient post-anesthesia follow up: Airway intact: Yes Vital signs: Temperature 98.3 F Pulse Rate 88 Respiratory Rate 16 Blood Pressure 114/65 Pulse Oximetry 93 Oxygen Delivery Me thod Room Air Oxygen Flow Rate 2 Fraction of Inspir ed Oxygen Hydration adequate: Yes Nausea and vomiting: No Pain level: 1 Mental status: Baseline
== END 2025-07-26 12:10 | disposition home or self-care (01) ==
PROVIDERS: PCP Nurse Practitioner Family; Visit Provider Orthopaedic Surgery
PROC: (CPT 63005; 2025-07-26 10:05)
DX: M48.062 Spinal stenosis, lumbar region with neurogenic claudication (principal); I10 Essential (primary) hypertension; E11.9 Type 2 diabetes mellitus without complications; K21.9 Gastro-esophageal reflux disease without esophagitis; E66.01 Morbid (severe) obesity due to excess calories; Z68.43 Body mass index [BMI] 50.0-59.9, adult; Z79.84 Long term (current) use of oral hypoglycemic drugs; Z87.891 Personal history of nicotine dependence
CPT/HCPCS: 63047; 63048; 36416; 72100; 76000; 82962; J1100; J2405; J2704; J3010; J3490; J7030; J9999; Q0162

== ENCOUNTER → 2025-10-04 09:30 | Outpatient (BNVA) | payer BC, SELFPAY | PROVIDERS: PCP Nurse Practitioner Family; Visit Provider Nurse Practitioner Family | DX: I10 Essential (primary) hypertension (principal); E11.9 Type 2 diabetes mellitus without complications | CPT/HCPCS: 80053; 80061; 82043; 83036 ==